=== PATIENT | male | born 1980 ===

== ENCOUNTER 2017-09-13 02:34 | Emergency (ER) | payer BC ==
[2017-09-13 02:49] VITALS: PULSE 86; O2SAT 97
--- NOTE | 2017-09-13 02:53 | C.PDOC ---
History Of Present Illness 37 year old male presents to the ED c/o sudden onset left flank pain associated with dysuria. Patient describes his pain as sharp stabbing pain, 5/10. Patient denies fever, chills, nausea, vomit, diarrhea, hematuria. Time Seen by Provider: 09/13/17 02:53 Chief Complaint (Nursing): Back Pain History Per: Patient History/Exam Limitations: no limitations Current Symptoms Are (Timing): Still Present Quality Of Discomfort: Sharp, Stabbing Severity: Moderate Pain Scale Rating Of: 5 Previous Symptoms: None Recent travel outside of the [place]: No Additional History Per: Patient Past Medical History Reviewed: Historical Data, Nursing Documentation, Vital Signs Vital Signs: Last Vital Signs Temp 97.5 F L 09/13/17 02:45 Pulse 86 09/13/17 02:45 Resp 20 09/13/17 02:45 BP 135/91 H 09/13/17 02:45 Pulse Ox 97 09/13/17 03:00 - Medical History PMH: No Chronic Diseases Surgical History: No Surg Hx Family History: States: Unknown Family Hx - Social History Hx Alcohol Use: Yes Hx Substance Use: No - Immunization History Hx Tetanus Toxoid Vaccination: No Hx Influenza Vaccination: No Hx Pneumococcal Vaccination: No Review Of Systems Constitutional: Negative for: Fever, Chills Cardiovascular: Negative for: Chest Pain, Palpitations Respiratory: Negative for: Cough, Shortness of Breath Gastrointestinal: Positive for: Abdominal Pain. Negative for: Nausea, Vomiting Genitourinary: Positive for: Dysuria Musculoskeletal: Positive for: Back Pain Skin: Negative for: Rash Neurological: Negative for: Weakness, Numbness Physical Exam - Physical Exam Appears: Non-toxic, No Acute Distress Skin: Warm, Dry Head: Normacephalic Eye(s): bilateral: Normal Inspection Oral Mucosa: Moist Neck: Supple Chest: Symmetrical Cardiovascular: Rhythm Regular Respiratory: No Rales, No Rhonchi, No Wheezing Gastrointestinal/Abdominal: Soft, No Tenderness, Distention, No Guarding, No Rebound, Other (obese) Back: Other (left flank pain) Extremity: No Tenderness, No Swelling Extremity: Bilateral: Atraumatic, Normal Color And Temperature, Normal ROM Neurological/Psych: Oriented x3, Normal Speech Gait: Steady ED Course And Treatment - Laboratory Results Result Diagrams: 09/13/17 03:08 09/13/17 03:08 O2 Sat by Pulse Oximetry: 97 (ON RA) Pulse Ox Interpretation: Normal Progress Note: Plan: - Labs. - IV fluids. - Toradol 30 mg IVP. - Zofran 4 mg IVP. - UA Reevaluation Time: 03:56 Reassessment Condition: Improved Disposition Counseled Patient/Family Regarding: Studies Performed, Diagnosis, Need For Followup, Rx Given - Disposition Referrals: Jani Boggs MD [Medical Doctor] - López Tompkins MD [Staff Provider] - Disposition: HOME/ ROUTINE Disposition Time: 02:53 Condition: FAIR Additional Instructions: Please return if symptoms recur Prescriptions: Ibuprofen [Motrin Tab] 800 mg PO TID PRN #15 tab PRN Reason: Pain, Moderate (4-7) Ondansetron ODT [Zofran ODT] 1 odt PO BID PRN #6 odt PRN Reason: Nausea/Vomiting Tamsulosin [Flomax] 0.4 mg PO DAILY #15 cap Instructions: Renal Colic (DC), Kidney Stones (DC) Forms: [employer] ([employer]) Print Language: BURUNDIAN - Clinical Impression Clinical Impression: Renal colic on left side, Kidney stone on left side, Hydroureteronephrosis - Scribe Statement The provider has reviewed the documentation as recorded by the Scribe Christoph Manrique All medical record entries made by the Scribe were at my direction and personally dictated by me. I have reviewed the chart and agree that the record accurately reflects my personal performance of the history, physical exam, medical decision making, and the department course for this patient. I have also personally directed, reviewed, and agree with the discharge instructions and disposition.
[2017-09-13 03:03] LABS: SQUAMOUS EPITHIAL < 1 /hpf (0-5); URINE BILIRUBIN NEGATIVE (NEGATIVE); URINE BLOOD NEGATIVE (NEGATIVE); URINE CLARITY Clear (Clear); URINE COLOR Yellow (YELLOW); URINE GLUCOSE (UA) NORMAL (Normal); URINE LEUKOCYTE ESTERASE NEG Leu/uL (Negative); URINE PROTEIN NEGATIVE (NEGATIVE); URINE UROBILINOGEN NORMAL mg/dL (0.2-1.0)
[2017-09-13] MEDS: Sodium Chloride 0.9% 1,000 ML IV ONE (03:10)
[2017-09-13 03:18] LABS: ALB/GLOB RATIO 1.2 (1.0-2.1); ALBUMIN 3.9 g/dL (3.5-5.0); ALT/SGPT 72 U/L (21-72); AST/SGOT 41 U/L (17-59); BLOOD UREA NITROGEN 14 mg/dL (9-20); CALCIUM 8.8 mg/dl (8.6-10.4); EOS # 0.2 K/uL (0.0-0.7); EOS % 4.2 % (0.0-4.0); GFR AFRICAN-AMERICAN > 60; GFR NON-AFRICAN AMERICAN > 60; HEMOGLOBIN 15.1 g/dL (12.0-18.0); LIPASE 78 U/L (23-300); LYMPH # 2.6 K/uL (1.0-4.3); LYMPH % 56.9 % (20.0-40.0); MEAN CELL VOLUME 91.8 fL (80.0-94.0); MEAN CORPUSCULAR HGB CONC 34.9 g/dL (33.0-37.0); MEAN PLATELET VOLUME 8.8 fL (7.2-11.7); MONO # 0.5 K/uL (0.0-0.8); NEUT # 1.3 K/uL (1.8-7.0); NEUT % 27.9 % (50.0-75.0); NRBC % 0.1 % (0.0-2.0); RBC 4.71 Mil/uL (4.40-5.90); RED CELL DISTRIBUTION WIDTH 13.6 % (11.5-14.5); WHITE BLOOD COUNT 4.5 K/uL (4.8-10.8)
[2017-09-13 04:08] VITALS: BP 130/84; RESP 18; TEMP 98.4
--- NOTE | 2017-09-13 06:21 | CT ---
Date of service: 09/13/2017 PROCEDURE: CT Abdomen and Pelvis without intravenous contrast HISTORY: left flank pain COMPARISON: None. TECHNIQUE: Axial and reformatted coronal and sagittal CT images of the abdomen and pelvis were obtained without IV or oral contrast administration.. Contrast dose: 0 Radiation dose: Total exam DLP = 1481.24 mGy-cm. This CT exam was performed using one or more of the following dose reduction techniques: Automated exposure control, adjustment of the mA and/or kV according to patient size, and/or use of iterative reconstruction technique. FINDINGS: LOWER THORAX: No evidence of acute pathology LIVER: Heterogeneous attenuation of the liver noted suggestive of patchy fatty liver infiltration/hepatic steatosis. No definite evidence of discrete mass lesion in this non IV contrast enhancing study. GALLBLADDER AND BILE DUCTS: Unremarkable. PANCREAS: Unremarkable. No gross lesion or ductal dilatation. SPLEEN: Unremarkable. ADRENALS: Unremarkable. No mass. KIDNEYS AND URETERS: There is mild left hydronephrosis and hydroureter up to 3 millimeter calculus at the distal left ureter at or adjacent to the left UV junction. There are bilateral nonobstructing renal calculi noted larger and more on the right kidney. The largest nonobstructing calculus is noted at the midpole of the right kidney measures 4 millimeter. No evidence of right hydronephrosis or hydroureter. VASCULATURE: Unremarkable. No aortic aneurysm. BOWEL: Unremarkable. No obstruction. No gross mural thickening. Few colonic diverticulosis are seen without evidence of diverticulitis APPENDIX: Unremarkable. Normal appendix. PERITONEUM: Unremarkable. No free fluid. No free air. LYMPH NODES: Unremarkable. No enlarged lymph nodes. BLADDER: Unremarkable. REPRODUCTIVE: Unremarkable. BONES: No acute fracture. OTHER FINDINGS: None. IMPRESSION: Mild left hydronephrosis and hydroureter up to 3 millimeter calculus at the distal left ureter at or adjacent to the left UV junction. Bilateral nonobstructing renal calculi. The largest calculus seen at the mid to lower pole of the right kidney measures 4 millimeter. Hepatic steatosis. Preliminary report was submitted by [facility].
== END 2017-09-13 04:07 | disposition home or self-care (01) ==
LOC: C.ER 02:34
DX: N13.2 Hydronephrosis with renal and ureteral calculous obstruction (principal)
CPT/HCPCS: 74176; 80053; 81001; 83690; 85025; 96374; 96375; 99283; J1885; J2405; J7030